=== PATIENT | female | born 1985 | race Caucasian/White ===

== ENCOUNTER 2023-06-21 14:06 | Outpatient (OUT) | payer OTHER, SELFPAY ==
--- NOTE | 2023-06-21 14:17 | MR_ITS ---
The [address] [address] Patient Name: MAURICE CLARK MRN: [id number] date: 1985 Sex: F Assigned Patient Location: MRI Current Patient Location: Accession/Order Number: [id number] Exam Date: 06/21/2023 14:25 Report Date: 06/22/2023 11:24 At the request of: LYRIC KOO Procedure: MR lumbar spine wo con MR lumbar spine wo con, 06/21/2023 2:25 PM EDT INDICATION: Lumbar Region Disc Degeneration M51.36 COMPARISON: Prior x-ray of lumbar spine dated 06/08/2020 TECHNIQUE: Multiplanar, multisequential MRI images of lumbar spine were obtained without contrast. FINDINGS: For dictation purposes, the lowest complete disc space in the lumbar spine considered as L5-S1. There is normal physiologic lumbar lordosis. The vertebral height is preserved. The conus medullaris is at the level of L1. No signal abnormality within the visualized spinal cord is noted. Incidental note of possible simple cyst within the right ovary measuring 1.7 cm. A hemangioma within the body of L4 is noted. No neural foraminal narrowing or canal stenoses at the level of T12-L1, L1-L2 and L2-L3 and L3-L4 is noted. At the level of L4-5, there are disc bulge with no neuroforaminal narrowing and no canal stenosis. At the level of L5-S1, there are disc bulge with superimposed central protrusion with mild bilateral neuroforaminal narrowing and no canal stenosis. The paraspinal muscles are unremarkable. MR/MR lumbar spine wo con IMPRESSION: Mild degenerative changes at the level of L5-S1. Electronically authenticated by: KAREN DUKES Date: 06/22/2023 11:24
[2023-06-21 15:50] LABS: Alanine Aminotransferase 17 U/L (14-59); Albumin Globulin Ratio 0.9; Albumin Level 3.4 g/dL (3.4-5.0); Alkaline Phosphatase 78 U/L (46-116); Anion Gap 7.7; Aspartate Amino Transferase 21 U/L (15-37); Bilirubin Total 0.3 mg/dL (0.2-1.0); Calcium 9.1 mg/dL (8.5-10.1); Carbon Dioxide 29.1 mmol/L (21.0-32.0); Chloride 101 mmol/L (98-107); Estimated GFR (African America >60 (>=60); Estimated GFR (Non-African Ame >60 (>=60); Free T3 3.47 pg/mL (2.18-3.98); Globulin 3.6 g/dL; Glucose 86 mg/dL (74-106); Potassium 3.8 mmol/L (3.5-5.1); Sodium 134 mmol/L (136-145); Thyroid Stimulating Hormone 2.488 uIU/mL (0.358-3.740); Uric Acid 4.6 mg/dL (2.6-6.0)
[2023-06-21 16:11] LABS: C Reactive Protein <0.2 mg/dL (<=1.0)
[2023-06-22 06:08] LABS: Antistreptolysin O Ab 124.5 IU/mL (0.0-200.0); Rheumatoid Factor (RF) <10.0 IU/mL (<14.0)
== END 2023-06-21 14:07 | disposition home or self-care (01) ==
LOC: MRI 14:09
PROVIDERS: PCP Nurse Practitioner Family; Visit Provider Nurse Practitioner Family
DX: M51.36 Other intervertebral disc degeneration, lumbar region (principal); R20.2 Paresthesia of skin; M51.37 Other intervertebral disc degeneration, lumbosacral region
CPT/HCPCS: 36415; 72148; 80053; 82607; 82746; 84436; 84443; 84481; 84550; 86038; 86060; 86140; 86430; 86431